=== PATIENT | female | born 1945 | race Caucasian/White ===

== ENCOUNTER 2024-04-18 22:23 | Observation (INO) | payer MEDICARE, SELFPAY ==
--- NOTE | 2024-04-18 | ECG_ITS ---
Test Reason : AFIB PER EMS Blood Pressure : / mmHG Vent. Rate : 115 BPM Atrial Rate : 000 BPM P-R Int : 000 ms QRS Dur : 104 ms QT Int : 332 ms P-R-T Axes : 000 011 249 degrees QTc Int : 459 ms Atrial fibrillation with rapid ventricular response Left ventricular hypertrophy with repolarization abnormality ( Facundo product ) Abnormal ECG No previous ECGs available Referred By: Generic ED Physician Electronically Signed By:ADDY WEBB MD
--- NOTE | ~2024-04-18 | XR_ITS ---
EXAMINATION: XR CHEST CLINICAL INFORMATION: Clinical question of congestive heart failure. COMPARISON: None available. TECHNIQUE: Frontal view of the chest was obtained. FINDINGS: No significant abnormality is noted involving the heart, lungs, mediastinum, bony thorax or soft tissues. XR/XR chest 1V IMPRESSION: Unremarkable examination. Electronically signed by: Pradeep Johnson MD 04/18/2024 11:54 PM [facility] [place]
[2024-04-18 22:29] VITALS: BP 147/89; PULSE 120; O2SAT 95
[2024-04-18 22:39] VITALS: BP 152/80; PULSE 135; RESP 20; TEMP 36.8; O2SAT 94
[2024-04-18 22:41] VITALS: BMI 33.4
--- NOTE | 2024-04-18 22:41 | ED.CHESTPAIN ---
HPI - Chest Pain General Chief Complaint: Arrhythmia/Palpitations Stated Complaint: Heart palpitations, 12 lead shows Afib, no hx afib Time Seen by Provider: 04/18/24 22:30 Source: patient Mode of arrival: ambulatory Limitations: no limitations History of Present Illness ED Provider: Dr. Balbina Gomez HPI narrative: Patient comes to the emergency room complaining of 1 hour onset of palpitations. According to the patient, he has not had any history of atrial fibrillation. Patient called EMS, they are EKG showed AFib, heart rate in the 140s to 150s. Patient states that she has a bit of chest pressure and palpitations. Related Data Allergies Allergy/AdvReac Type Severity Reaction Status Date / Time No Known Allergies Allergy Verified 04/18/24 22:43 Review of Systems Review of Systems: Constitutional : No Weight loss, No Fever, No Chills, No Night Sweats, No Fatigue, No Malaise ENT/Mouth : No Hearing loss, No Ear Pain, No Nasal Congestion, No Sinus Pain, No Hoarseness, No sore throat, No Rhinorrhea, No Swallowing Difficulty Eyes: No Eye Pain, No Swelling, No Redness, No Foreign Body, No Discharge, No Vision Changes Cardiovascular : No Chest Pain, complaining of mild chest pressure, palpitations, irregular rhythm Respiratory : No Cough, No Sputum, No Wheezing, No Smoke Exposure, No Dyspnea Gastrointestinal : No Nausea, No Vomiting, No Diarrhea, No Constipation, No abdominal Pain, No Hematochezia, No Melena Genitourinary : no irregular bleeding, No Dysuria, No Urinary Frequency, No Hematuria, No Urinary Incontinence, No Urgency, No Flank Pain, No Urinary Flow Changes, No Hesitancy Musculoskeletal : No joint pain, No Myalgias, No Joint Swelling Skin : No Skin Lesions, No rash Neuro : No Weakness, No Numbness, No Paresthesias, No Loss of Consciousness, No Dizziness, No Headache Psych : No Anxiety/Panic, No Depression, No SI/HI/AH/VH, No Social Issues, Heme/Lymph: No Bruising, No Bleeding,No Lymphadenopathy Endocrine : No Polyuria, No Polydipsia, No Temperature Intolerance PMF Past Medical History Medical History (Updated 04/19/24 @ 00:56 by Balbina Gomez MD) Hyperlipidemia Social History Social History Advance Directives: No Advance Directives Information Provided: No Do you have a plan to hurt others: No Plan Physical Exam Vital Signs: Vital Signs: Last Vital Signs Temp 98.2 F 04/19/24 00:44 Pulse 116 H 04/19/24 00:44 Resp 22 H 04/19/24 00:44 BP 105/72 04/19/24 00:44 Pulse Ox 94 04/19/24 00:44 O2 Del Method Room Air 04/19/24 00:44 BMI result Body Mass Index 33.4 Const: Other: Appearance: Alert. Oriented X3. No acute distress. Eyes: Pupils equal, round and reactive to light. ENT: Pharynx normal. Neck: Normal inspection. Neck supple. No lymph nodes noted. No crepitus CVS: Heart is irregularly irregular in the 130s to 150s Pulses normal. Normal S1 and S2 Respiratory: No respiratory distress. Breath sounds normal. No Wheezing. No rales Abdomen: Soft and nontender. No rigidity. No distention. Skin: Skin warm and dry. Normal skin color. Normal skin turgor. Extremities: No lower extremity edema. No Lacerations. No Rash Neuro: Oriented X 3. No motor deficit. No sensory deficit. Moving all extremities. No slurred speech. CN 2 through 12 grossly intact Psych: calm, cooperative, normal affect Medications Administered Discontinued Medications Generic Name Dose Route Start Last Admin Trade Name Vinceq PRN Reason Stop Dose Admin Diltiazem HCl 10 mg 04/18/24 22:41 04/18/24 23:04 Diltiazem Hcl 50 Mg/10 Ml Vial IVPUSH 04/18/24 22:42 10 mg STAT STA Administration Medical Decision Making Medical Decision Making [facility] Narrative: My interpretation of EKG: Atrial fibrillation with RVR, heart rate 115, nonspecific ST changes, QTC 459 All of patient's labs pending Patient's blood pressure 152/80, heart rate between 130 and 150 Patient receiving 1 dose of Cardizem IV 10 mg My interpretation of labs: No abnormality in hematology, chemistry shows a potassium of 3.1 which was repleted p.o., normal troponin, BNP 177 with no signs of CHF exacerbation. -after the Cardizem IV push, patient's heart rate was in the 100s. However, patient got out of bed start walking and went up to 150s again. Patient's chads 2 Vasc score of 3 -I discussed with the patient the risks versus benefits of starting a blood thinner, patient aware that if she falls down and has any kind of head injury, she needs to return to the emergency room for further evaluation possibly a CT scan. Also, patient aware that she may develop occult GI bleeding. Patient agreeable to start Eliquis Patient started on Cardizem drip -patient agrees with plan, Patient discussed with our hospitalist Dr. Castillo, patient being admitted Differential Diagnosis Differential Diagnoses: The differential diagnosis associated with the presentation includes Admission/Observation Consideration of admission/observation: Escalation of care including admission/observation considered Consult Healthcare Provider Management of the patient was discussed with: Hospitalist Lab Data MDM Lab Attestation statement: I reviewed the patient's lab results. 04/18/24 22:51 04/18/24 22:51 Labs: Lab Results 04/18/24 Range/Units 22:51 WBC 5.5 (4.8-10.8) X10*3/uL RBC 4.56 (4.20-5.50) X10*6/uL Hgb 15.2 (12.0-16.0) g/dl Hct 44.5 (37.0-47.0) % MCV 97.6 (80.0-98.0) fL MCH 33.3 H (27.0-33.0) pg MCHC 34.2 (31.0-35.0) g/dl RDW 13.4 (11.0-16.0) % Plt Count 159 L (160-400) X10*3/uL MPV 11.4 (9.4-12.3) fL Immature Gran % (Auto) 0.0 (0.0-0.4) % Neut % (Auto) 53.0 (45-73) % Lymph % (Auto) 36.2 (20-40) % Villalba % (Auto) 9.3 (2-11) % Eos % (Auto) 1.3 (0-4) % Baso % (Auto) 0.2 (0-2) % Lymph # (Auto) 2.0 (1.2-4.9) X10*3/uL Villalba # (Auto) 0.5 (0.1-1.2) X10*3/uL Eos # (Auto) 0.1 (0.0-0.4) X10*3/uL Baso # (Auto) 0.0 (0.0-0.2) X10*3/uL Abs Immat Gran (auto) 0.00 (0.00-0.03) X10*3/uL Absolute Neuts (auto) 2.9 (2.0-8.3) x10*3/uL Absolute Nucleated RBC 0.000 (0.0-0.012) X10*3/uL Nucleated RBC % (auto) 0.0 (0.0-0.2) /100WBC PT 10.4 L (10.9-12.4) SEC INR 0.9 (0.9-1.1) Sodium 143 (135-145) mmol/L Potassium 3.1 L (3.3-5.1) mmol/L Chloride 110 H (96-108) mmol/L Carbon Dioxide 19 L (22-29) mmol/L Anion Gap 17 (12-20) BUN 13 (9-16) mg/dL Creatinine 0.94 (0.5-1.4) mg/dL Estim Creat Clear Calc 54.1 Estimated GFR 57 Random Glucose 179 H (60-115) mg/dL Calcium 9.1 (8.4-10.2) mg/dL Magnesium 1.6 (1.6-2.6) mg/dL Total Bilirubin 0.2 (0.0-1.0) mg/dL Direct Bilirubin < 0.2 (0.0-0.5) mg/dL AST 23 (5-31) U/L ALT 21 (0-31) U/L Alkaline Phosphatase 73 (39-117) U/L Troponin I High Sens 10.7 (<3.5-17.0) ng/L B-Natriuretic Peptide 177 H (<100) pg/mL Total Protein 6.9 (6.5-8.0) g/dL Albumin 3.9 (3.5-5.0) g/dL TSH 3.98 (0.32-4.0) uIU/mL Independent Interpretation I performed an independent interpretation of an: Plain X-Ray Radiology Impression Discussion of test interpretation with radiology: I have reviewed the radiologist's reading. Radiologist Impression: No significant abnormality is noted involving the heart, lungs, mediastinum, bony thorax or soft tissues. XR/XR chest 1V IMPRESSION: Unremarkable examination. Independent Historian Clinical information obtained from an independent historian. History obtained from or confirmed by: Spouse Critical Care Time Critical Care Time Critical Care Time: Yes Total Critical Care Time: 60 Attestation: I have personally provided critical care time. Time includes review of lab data, radiology results, discussion with consultants, and monitoring for potential decompensation. Intervention performed as documented. Discharge Plan Discharge Clinical Impression: Atrial fibrillation with RVR, Acute hypokalemia Patient Disposition: Admitted As Inpatient Print Language: Telugu
[2024-04-18 22:56] LABS: Basophils Percent Auto 0.2 % (0-2); Eosinophils Absolute Auto 0.1 X10*3/uL (0.0-0.4); Eosinophils Percent Auto 1.3 % (0-4); Hematocrit 44.5 % (37.0-47.0); Hemoglobin 15.2 g/dl (12.0-16.0); Lymphocytes Percent Auto 36.2 % (20-40); MANUAL DIFF FLAG NO; Mean Corpuscular HGB Conc 34.2 g/dl (31.0-35.0); Mean Corpuscular Hemoglobin 33.3 pg (27.0-33.0); Mean Corpuscular Volume 97.6 fL (80.0-98.0); Mean Platelet Volume 11.4 fL (9.4-12.3); Monocytes Absolute Auto 0.5 X10*3/uL (0.1-1.2); Monocytes Percent Auto 9.3 % (2-11); Neutrophils Absolute Auto 2.9 x10*3/uL (2.0-8.3); Platelet Count 159 X10*3/uL (160-400); Red Blood Count 4.56 X10*6/uL (4.20-5.50); Red Cell Distribution Width 13.4 % (11.0-16.0); White Blood Count 5.5 X10*3/uL (4.8-10.8)
[2024-04-18 23:01] LABS: INTERNATIONAL NORM RATIO 0.9 (0.9-1.1); Prothrombin Time 10.4 SEC (10.9-12.4)
[2024-04-18 23:04] VITALS: BP 120/78; PULSE 132
[2024-04-18] MEDS: dilTIAZem HCL 50 MG/10 ML VIAL 10 MG IVPUSH (23:04)
[2024-04-18 23:16] LABS: B Type Natriuretic Peptide 177 pg/mL (<100)
[2024-04-18 23:17] LABS: Alanine Aminotransferase 21 U/L (0-31); Albumin Level 3.9 g/dL (3.5-5.0); Alkaline Phosphatase 73 U/L (39-117); Anion Gap 17 (12-20); Aspartate Amino Transferase 23 U/L (5-31); Bilirubin Direct < 0.2 mg/dL (0.0-0.5); Bilirubin Total 0.2 mg/dL (0.0-1.0); Blood Urea Nitrogen 13 mg/dL (9-16); Calcium 9.1 mg/dL (8.4-10.2); Carbon Dioxide 19 mmol/L (22-29); Chloride 110 mmol/L (96-108); Creatinine Clr Calc Pharmacy 54.1; Estimated Glomerular Filt Rate 57; Glucose Random 179 mg/dL (60-115); Magnesium 1.6 mg/dL (1.6-2.6); Potassium 3.1 mmol/L (3.3-5.1); Sodium 143 mmol/L (135-145); Total Protein 6.9 g/dL (6.5-8.0); Troponin-I High Sensitivity 10.7 ng/L (<3.5-17.0)
--- NOTE | 2024-04-18 23:28 | PC.NURSE ---
Pt received 10mg IV push cardizem, initial decrease in HR 90-100's.
[2024-04-18 23:31] LABS: TSH reflex Free T4 3.98 uIU/mL (0.32-4.0)
--- NOTE | 2024-04-19 | ECG_ITS ---
Test Reason : TACKY Blood Pressure : / mmHG Vent. Rate : 075 BPM Atrial Rate : 075 BPM P-R Int : 164 ms QRS Dur : 098 ms QT Int : 396 ms P-R-T Axes : 018 -09 -04 degrees QTc Int : 442 ms Normal sinus rhythm Minimal voltage criteria for LVH, may be normal variant ( Overton product ) Inferior infarct , age undetermined Abnormal ECG When compared with ECG of 18-APR-2024 22:32, Significant changes have occurred Referred By: Adis Singleton Electronically Signed By:ADDY WEBB MD
[2024-04-19 00:44] VITALS: BP 105/72; PULSE 116; RESP 22; TEMP 36.8; O2SAT 94
--- NOTE | 2024-04-19 01:40 | P.HPHOSP_ITS ---
History of Present Illness Date of Service: 04/19/24 Attending physician on admission: Adis Singleton Chief Complaint: Palpitations Edwige Nick is a 78 years old woman with past medical history significant for hyperlipidemia was brought to the ED by EMS due to palpitations that started last night around 21:30 while she was falling asleep last night. She reported some chest heaviness. There is no significant shortness on breath or cough. She did not report dizziness or loss of consciousness. Denies history of hypertension, heart failure, hyperthyroidism or arrhythmias. She drinks alcohol everyday for many years -3 glasses of bourbon. Last alcoholic drink was yesterday. She denied tobacco smoking or illicit drug use. She mentioned that she has been very stressed lately. In the ED, she was found to have tachycardia consistent with atrial fibrillation. Other vital signs are stable. Blood workup showed essentially normal CBC. There is mild hypokalemia of 3.1 but no other electrolyte imbalances. CO2 is 19 and normal anion gap. LFTs and renal function are normal. BNP is 177. TSH is 3.98. Troponin is negative. ECG CXR is negative. Initial ECG showed atrial fibrillation with rapid ventricular response, heart rate 115 bpm with LVH changes and no ischemia. While evaluating patient her heart rate converted to normal sinus rhythm. ECU was repeated and showed normal sinus rhythm with a heart rate of 75 beats per minutes without ischemic changes. ED tx: Diltiazem 10 mg IV, potassium 60 mEq p.o., Eliquis 5 mg. Review of Systems 2 Review of Systems: All 12 systems were reviewed and normal except as noted in HPI. [facility] Medical History (Updated 04/19/24 @ 00:56 by Balbina Gomez MD) Hyperlipidemia Social History Advance Directives: No Advance Directives Information Provided: No Do you have a plan to hurt others: No Plan Meds Allergies Allergy/AdvReac Type Severity Reaction Status Date / Time No Known Allergies Allergy Verified 04/18/24 22:43 Active Medications: Current Medications Acetaminophen (Acetaminophen 325 Mg Tablet) 975 mg PO Q6H PRN PRN Reason: Pain, Mild (Pain Scale 1-3), fever or headache Diltiazem HCl 125 mg/ Sodium (Chloride) 125 mls @ 0 mls/hr IVCONT .Q0M CATHI; Protocol Metoprolol Tartrate (Metoprolol Tartrate 12.5 Mg Halftab) 12.5 mg PO BID CATHI; Protocol Sodium Chloride (0.9 % Sodium Chloride Flush 3 Ml Syringe) 3 ml IVFLUSH QSHIFT CATHI Physical Exam 2 Vital Signs and Narrative: Vital Signs: Last Vital Signs Temp 98.2 F 04/19/24 00:44 Pulse 116 H 04/19/24 00:44 Resp 22 H 04/19/24 00:44 BP 105/72 04/19/24 00:44 Pulse Ox 94 04/19/24 00:44 O2 Del Method Room Air 04/19/24 00:44 BMI result Body Mass Index 33.4 Constitutional - Awake and Alert, No apparent distress. Very anxious and tearful. HEENT - PER, EOMI. Heart - RRR. No murmurs. Lungs - Normal lung expansion, Normal respiratory effort, No respiratory distress, CTA bilaterally Abdomen - NT / ND; +BS; No rebound or guarding Extremities - no calf tenderness bilaterally, no swelling Skin - Warm/Dry Neurological - Alert & oriented x3. No focal weakness grossly noted. Normal speech. Psychological - Anxious affect Results Labs 04/18/24 22:51 04/18/24 22:51 Labs: Laboratory Results - last 24 hr 04/18/24 22:51 MCV 97.6 MCH 33.3 H MCHC 34.2 RDW 13.4 Plt Count 159 L MPV 11.4 Immature Gran % (Auto) 0.0 Neut % (Auto) 53.0 Lymph % (Auto) 36.2 Dukes % (Auto) 9.3 Eos % (Auto) 1.3 Baso % (Auto) 0.2 Lymph # (Auto) 2.0 Dukes # (Auto) 0.5 Eos # (Auto) 0.1 Baso # (Auto) 0.0 Abs Immat Gran (auto) 0.00 Absolute Neuts (auto) 2.9 Absolute Nucleated RBC 0.000 Nucleated RBC % (auto) 0.0 PT 10.4 L INR 0.9 Anion Gap 17 Estim Creat Clear Calc 54.1 Estimated GFR 57 Random Glucose 179 H Calcium 9.1 Magnesium 1.6 Total Bilirubin 0.2 Direct Bilirubin < 0.2 AST 23 ALT 21 Alkaline Phosphatase 73 Troponin I High Sens 10.7 B-Natriuretic Peptide 177 H Total Protein 6.9 Albumin 3.9 TSH 3.98 Imaging Radiologist's Impressions: Impressions Chest X-Ray 04/18/24 22:39 IMPRESSION: Unremarkable examination. Electronically signed by: Pradeep Johnson MD 04/18/2024 11:54 PM [facility] [place] Assessment and Plan (1) Acute hypokalemia: Status: Acute (2) Atrial fibrillation with RVR: Status: Acute (3) Hyperlipidemia: Status: Acute Plan Edwige Nick is a 78 y/o woman admitted with: * Episode of atrial fibrillation, converted to normal sinus rhythm after receiving treatment with Cardizem 10 mg IV x1. Observation. Start metoprolol 12.5 mg PO bid. Patient to consider avoid alcohol consumption. Check echocardiogram. Eliquis versus aspirin if echo shows CHF. Cardiology consult. * Mild hypokalemia. Potassium 60 mEq p.o. given in ED. Continue to monitor K level. Replete as needed. * Hyperlipidemia. Continue statin. * Mood disorder. Continue citalopram. DVT prophylaxis: Early ambulation Code status: Full Quality Stroke Does the patient have a stroke diagnosis?: No VTE Prior VTE?: No VTE Risk Level:: Medical - moderate - high VTE Device Contraindication: Treatment Not Indicated VTE Drug Contraindication: N/A - Med Ordered
[2024-04-19] MEDS: Metoprolol Tartrate 12.5 MG HALFTAB PO ×2 (02:02→09:23)
[2024-04-19] MEDS: Apixaban 5 MG TABLET PO (02:03)
[2024-04-19] MEDS: Potassium Chloride Packet 20 MEQ PACKET 60 MEQ PO (02:03)
[2024-04-19 04:00] VITALS: PULSE 64
[2024-04-19 05:51] LABS: MANUAL DIFF FLAG NO
[2024-04-19 06:11] LABS: Anion Gap 13 (12-20); Blood Urea Nitrogen 13 mg/dL (9-16); Calcium 9.1 mg/dL (8.4-10.2); Carbon Dioxide 25 mmol/L (22-29); Chloride 109 mmol/L (96-108); Creatinine Clr Calc Pharmacy 59.1; Estimated Glomerular Filt Rate > 60; Glucose Random 116 mg/dL (60-115); Potassium 4.6 mmol/L (3.3-5.1); Sodium 142 mmol/L (135-145)
[2024-04-19 06:13] LABS: Troponin-I High Sensitivity 15.1 ng/L (<3.5-17.0)
--- NOTE | 2024-04-19 06:22 | PC.NURSE ---
Late documentation: Pt BIB EMS after reports of palpitations and chest heaviness. Pt found to be in afib RVR 110-130's. Pt given 10mg IV push cardizem at 2304 with minimal effect bringing HR down to 90's-110's afib. Pt ambulated in hallway with tech and HR between 130's-150's. Pt denied any chest pain but still reporting having chest palpitations I can feel my heart thumping . Pt to be admitted. At 0100pt HR dropped down to 35, Dr.Gomez Singleton was already in the room assessing pt for admission at the time. Pt reported feeling okay at that time. HR immediately improved and pt converted to SR in 70's. EKG obtained and vitals stable and pt resting in bed comfortably. Call menchaca within reach.
[2024-04-19 06:27] LABS: Basophils Percent Auto 0.3 % (0-2); Eosinophils Absolute Auto 0.1 X10*3/uL (0.0-0.4); Eosinophils Percent Auto 0.9 % (0-4); Hematocrit 42.1 % (37.0-47.0); Hemoglobin 14.2 g/dl (12.0-16.0); Imm Gran Abs Auto 0.03 X10*3/uL (0.00-0.03); Imm Gran Pct Auto 0.4 % (0.0-0.4); Lymphocytes Absolute Auto 1.8 X10*3/uL (1.2-4.9); Lymphocytes Percent Auto 26.2 % (20-40); Mean Corpuscular HGB Conc 33.7 g/dl (31.0-35.0); Mean Corpuscular Hemoglobin 33.1 pg (27.0-33.0); Mean Corpuscular Volume 98.1 fL (80.0-98.0); Monocytes Absolute Auto 0.6 X10*3/uL (0.1-1.2); Monocytes Percent Auto 8.9 % (2-11); Neutrophils Absolute Auto 4.3 x10*3/uL (2.0-8.3); Neutrophils Percent Auto 63.3 % (45-73); Platelet Count 166 X10*3/uL (160-400); Red Blood Count 4.29 X10*6/uL (4.20-5.50); Red Cell Distribution Width 13.5 % (11.0-16.0); White Blood Count 6.8 X10*3/uL (4.8-10.8)
[2024-04-19 08:25] VITALS: BP 113/63; PULSE 58; RESP 18; TEMP 36.7; O2SAT 97
[2024-04-19 09:05] VITALS: BMI 33.6
[2024-04-19] MEDS: 0.9 % Sodium Chloride Flush 3 ML SYRINGE IVFLUSH (09:23)
--- NOTE | 2024-04-19 09:44 | PHA.MEDREC ---
Addendum entered by Rick Romero RPh 04/19/24 11:22: MED REC CHECKED BY [facility] Original Note: Pharmacy Consult ? Medication Reconciliation Pharmacy has completed the medication reconciliation. Spoke to pt to confirm meds. Pt reports taking gabapentin 300 mg PM and trospium 20 mg in the AM only.
--- NOTE | 2024-04-19 11:48 | PM.DS ---
DS: Providers Provider Date of Service: 04/19/24 Date of admission: 04/19/24 01:20 Date of discharge: 04/19/24 Primary care physician: Unknown Physician Consults: 04/19/24 01:38 Consult to Cardiology Routine Consulting Provider: [facility] Reason for consultation: AFib, new onset Has provider been notified: No Attending physician on discharge: Neil Cortez Discharging clinician: Nara Jo DS: Diagnosis Discharge Diagnosis (1) Acute hypokalemia: Status: Acute (2) Atrial fibrillation with RVR: Status: Inactive (3) Hyperlipidemia: Status: Acute DS: Summary Hospital Course Hospital Course: From H&P on the day of admission Edwieg Nick is a 78 years old woman with past medical history significant for hyperlipidemia was brought to the ED by EMS due to palpitations that started last night around 21:30 while she was falling asleep last night. She reported some chest heaviness. There is no significant shortness on breath or cough. She did not report dizziness or loss of consciousness. Denies history of hypertension, heart failure, hyperthyroidism or arrhythmias. She drinks alcohol everyday for many years -3 glasses of bourbon. Last alcoholic drink was yesterday. She denied tobacco smoking or illicit drug use. She mentioned that she has been very stressed lately. In the ED, she was found to have tachycardia consistent with atrial fibrillation. Other vital signs are stable. Blood workup showed essentially normal CBC. There is mild hypokalemia of 3.1 but no other electrolyte imbalances. CO2 is 19 and normal anion gap. LFTs and renal function are normal. BNP is 177. TSH is 3.98. Troponin is negative. ECG CXR is negative. Initial ECG showed atrial fibrillation with rapid ventricular response, heart rate 115 bpm with LVH changes and no ischemia. While evaluating patient her heart rate converted to normal sinus rhythm. ECU was repeated and showed normal sinus rhythm with a heart rate of 75 beats per minutes without ischemic changes. ED tx: Diltiazem 10 mg IV, potassium 60 mEq p.o., Eliquis 5 mg. Paroxysmal atrial fibrillation Patient presented for evaluation of palpitations, on arrival was noted to be in atrial fibrillation, was given a dose of IV Cardizem and converted to normal sinus rhythm. Started on low-dose metoprolol and Eliquis. Seen in consultation by Cardiology who agreed with the same. Outpatient echocardiogram and follow-up with PCP. Patient educated not to combine alcohol with blood thinner as well as other anticoagulation precautions discussed - she understands. Time Attestation Discharge Coordination Time (in mins): 35 Quality: Safe Use of Opioids Does Pt have an Active Cancer Diagnosis on the Problem List?: No Quality: Stroke Does the patient have a stroke diagnosis?: No Physical Exam Vital Signs: Vital Signs: Last Vital Signs Temp 98.1 F 04/19/24 08:25 Pulse 58 04/19/24 08:25 Resp 18 04/19/24 08:25 BP 113/63 04/19/24 08:25 Pulse Ox 97 04/19/24 08:25 O2 Del Method Room Air 04/19/24 08:25 BMI result Body Mass Index 33.6 Const: General: cooperative, comfortable, no acute distress, alert and awake Nutritional Appearance: overweight Orientation/consciousness: patient oriented x3 Resp: Effort & Inspection: normal respiratory effort, able to speak in complete sentences, no respiratory distress and no use of accessory muscles Cardio: Rate: regular rate GI: Inspection: No distended Palpation (GI): Soft to palpation and nontender Neuro: General: patient oriented x3, moves all extremities and CN's II-XI intact bilaterally Extrem: General: Yes no pedal edema DS: Data Data Completed and Pending Labs on day of discharge: Laboratory Results - last 24 hr 04/18/24 04/19/24 22:51 05:36 WBC 5.5 6.8 RBC 4.56 4.29 Hgb 15.2 14.2 Hct 44.5 42.1 MCV 97.6 98.1 H MCH 33.3 H 33.1 H MCHC 34.2 33.7 RDW 13.4 13.5 Plt Count 159 L 166 MPV 11.4 12.0 Immature Gran % (Auto) 0.0 0.4 Neut % (Auto) 53.0 63.3 Lymph % (Auto) 36.2 26.2 Crenshaw % (Auto) 9.3 8.9 Eos % (Auto) 1.3 0.9 Baso % (Auto) 0.2 0.3 Lymph # (Auto) 2.0 1.8 Crenshaw # (Auto) 0.5 0.6 Eos # (Auto) 0.1 0.1 Baso # (Auto) 0.0 0.0 Abs Immat Gran (auto) 0.00 0.03 Absolute Neuts (auto) 2.9 4.3 Absolute Nucleated RBC 0.000 0.000 Nucleated RBC % (auto) 0.0 0.0 PT 10.4 L INR 0.9 Sodium 143 142 Potassium 3.1 L 4.6 D Chloride 110 H 109 H Carbon Dioxide 19 L 25 Anion Gap 17 13 BUN 13 13 Creatinine 0.94 0.86 Estim Creat Clear Calc 54.1 59.1 Estimated GFR 57 > 60 Random Glucose 179 H 116 H Calcium 9.1 9.1 Magnesium 1.6 Total Bilirubin 0.2 Direct Bilirubin < 0.2 AST 23 ALT 21 Alkaline Phosphatase 73 Troponin I High Sens 10.7 15.1 B-Natriuretic Peptide 177 H Total Protein 6.9 Albumin 3.9 TSH 3.98 Discharge Plan Discharge Anticipated Discharge Date/Time: 04/19/24 11:53 Patient Disposition: Home, Self-Care Discharge Diagnosis: atrial fibrillation, new onset Referrals: Cole Blood MD [Physician] - 2 Weeks Physician,Marie J [Primary Care Provider] - 1 Week Discharge Medications: New Eliquis 5 mg tablet 5 mg PO BID 90 Days Qty: 180 0RF metoprolol tartrate [Lopressor] 50 mg tablet 25 mg PO Q12H 90 Days Qty: 90 0RF Continued latanoprost 0.005 % drops 1 drp ophthalmic (eye) BEDTIME escitalopram oxalate 10 mg tablet 20 mg PO DAILY rosuvastatin 20 mg tablet 20 mg PO DAILY trospium 20 mg tablet 20 mg PO DAILY cetirizine 10 mg Tablet 10 mg PO BEDTIME gabapentin 300 mg capsule 300 mg PO BEDTIME cholecalciferol (vitamin D3) [Vitamin D3] 125 mcg (5,000 unit) Tablet 125 mcg PO DAILY cyanocobalamin (vitamin B-12) 1,000 mcg Lozenge 1,000 mcg SUBLINGUAL DAILY@1200 Discharge Orders: Discharge Order (Routine); Ordered 04/19/24 Ordered By: Nara Jo Activity on Discharge: As tolerated Stand Alone Forms: Patient Portal Discharge page Print Language: Korean Care Plan Goals: see below Health Concerns: new onset atrial fibrillation Plan of Treatment: start taking metoprolol to control heart rate take Eliquis to reduce the risk of stroke outpatient follow up with cardiology call to schedule follow up with PCP Do not drink alcohol, or take NSAIDs while taking blood thinner Assessment: see discharge summary
--- NOTE | 2024-04-19 11:49 | P.CONCA_ITS ---
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 Patient says that she has had fluttering in her chest for a long time since she was young person and was labeled in 1980s as having mitral valve prolapse although no interventions were performed. Since then she was advised to change from caffeine to decaffeinated beverages which she was. She continues to have intermittent symptoms of fluttering. However she says she was in usual state of health yesterday night had gone to bed and then woke up with sudden-onset rapid heart rate with palpitation felt really poorly associated with pressure on the chest. Patient subsequently told her and they called 911 and came to the emergency room. In the emergency room she was noted to be in atrial fibrillation rapid ventricular response with diffuse ST T wave changes suggestive of ischemia. This also possibility of LVH although she has no history of hypertension. With rate control she quickly converted to sinus rhythm and her ST T wave changes improved. Possibly suggestive of rate related repolarization abnormality and/or ischemia. Patient says she feels well. She has never had atrial fibrillation in the past. She was also noted to be significantly hypokalemic which has now improved with therapy. She is not on any diuretic therapy. Cardiology consult was sought for further management plan. Review of Systems 2 Constitutional: Constitutional: Reports no additional constitutional complaints Eyes: Eyes: Reports no additional eye complaints Cardiovascular: Cardiovascular: Reports chest pain at rest, Denies leg edema, Denies lightheadedness, Denies Loss of Consciousness, Reports palpitations and Reports dyspnea Respiratory: Respiratory: Reports no additional respiratory complaints and Reports dyspnea Gastrointestinal: Gastrointestinal: Reports no additional gastrointestinal complaints Genitourinary: Genitourinary: Reports no additional female genitourinary complaints Musculoskeletal: Musculoskeletal: Reports no additional musculoskeletal complaints Neurologic: Reports system reviewed and no additional complaints, except as documented Psychiatric: Psychiatric: Reports no additional psychiatric complaints Endocrine: Endocrine: Reports no additional endocrine complaints and Reports palpitations Hematologic/Lymphatic: Hematologic/Lymphatic: Reports no additional hematologic/lymphatic complaints Allergic/Immunologic: Allergic/Immunologic: Reports no additional allergic/immunologic complaints [facility] Past Medical History Medical History (Updated 04/19/24 @ 11:53 by Cole Blood MD) Atrial fibrillation with RVR 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, carcinoma Hyperlipidemia Social History Social History Household Members: Spouse Housing: Apartment Housing Other:: independent living Do you presently have visiting nurse or other home services: No Alcohol intake: current Patient Tobacco Use Status: Former Tobacco user Tobacco use type: Cigarette Meds Allergies Allergy/AdvReac Type Severity Reaction Status Date / Time No Known Allergies Allergy Verified 04/18/24 22:43 Active Medications: Current Medications Acetaminophen (Acetaminophen 325 Mg Tablet) 975 mg PO Q6H PRN PRN Reason: Pain, Mild (Pain Scale 1-3), fever or headache Atorvastatin Calcium (Atorvastatin Calcium 80 Mg Tablet) 80 mg PO DAILY CATHI Escitalopram Oxalate (Escitalopram Oxalate 20 Mg Tablet) 20 mg PO DAILY [facility] Gabapentin (Gabapentin 300 Mg Capsule) 300 mg PO BEDTIME [facility] Diltiazem HCl 125 mg/ Sodium (Chloride) 125 mls @ 0 mls/hr IVCONT .Q0M [facility]; Protocol Latanoprost (Latanoprost 0.005 % Ophth Eva 2.5 Ml Drops) 1 drop EYE-BOTH BEDTIME [facility] Metoprolol Tartrate (Metoprolol Tartrate 12.5 Mg Halftab) 12.5 mg PO BID [facility]; Protocol Last Admin: 04/19/24 09:23 Dose: 12.5 mg Non-Formulary Medication (Trospium) 20 mg PO DAILY [facility] Sodium Chloride (0.9 % Sodium Chloride Flush 3 Ml Syringe) 3 ml IVFLUSH QSHIFT [facility] Last Admin: 04/19/24 09:23 Dose: 3 ml Home Medications ?Medication ?Instructions ?Recorded ?Confirmed ?Last Taken ?Type cetirizine 10 mg tablet 10 mg PO BEDTIME 04/19/24 04/19/24 Unknown History cholecalciferol (vitamin D3) 125 125 mcg PO DAILY 04/19/24 04/19/24 04/18/24 09:00 History mcg (5,000 unit) tablet (Vitamin D3) cyanocobalamin (vitamin B-12) 1,000 mcg sublingual DAILY@1200 04/19/24 04/19/24 Unknown History 1,000 mcg sublingual lozenge escitalopram oxalate 10 mg tablet 20 mg PO DAILY 12/04/19/24 04/18/24 09:00 History gabapentin 300 mg capsule 300 mg PO BEDTIME 04/19/24 04/19/24 Unknown History latanoprost 0.005 % eye drops 1 drp ophthalmic (eye) BEDTIME 04/19/24 04/19/24 Unknown History rosuvastatin 20 mg tablet 20 mg PO DAILY 04/19/24 04/19/24 04/18/24 09:00 History trospium 20 mg tablet 20 mg PO DAILY 04/19/24 04/19/24 04/18/24 09:00 History Physical Exam 2 Vital Signs: Vital Signs: Last Vital Signs Temp 98.1 F 04/19/24 08:25 Pulse 58 04/19/24 08:25 Resp 18 04/19/24 08:25 BP 113/63 04/19/24 08:25 Pulse Ox 97 04/19/24 08:25 O2 Del Method Room Air 04/19/24 08:25 BMI result Body Mass Index 33.6 Const: General: cooperative, comfortable, no acute distress, alert and awake Nutritional Appearance: overweight Orientation/consciousness: patient oriented x3 Limitations: no limitations HEENT: Head: Yes normocephalic and Yes atraumatic Neck: Neck: Yes trachea midline, Yes supple and Yes no JVD Resp: Effort & Inspection: normal respiratory effort Auscultation: clear to auscultation bilaterally Cardio: Jugular venous distension: no JVD Palpation: normal PMI Rate: r egular rate Rhythm: regular rhythm Heart sounds: S1 normal heart sound present, S2 normal heart sound present, no click, no gallops, no murmurs and no rubs GI: Auscultation: normal bowel sounds Skin: General skin exam: no rashes or lesions noted Neuro: General: patient oriented x3 and no focal motor deficits Extrem: General: Yes no clubbing, cyanosis or edema Psych: Appearance: grossly normal Objective Labs and Meds 04/19/24 05:36 04/19/24 05:36 Lab results: Laboratory Results - last 24 hr 04/18/24 04/19/24 22:51 05:36 WBC 5.5 6.8 RBC 4.56 4.29 Hgb 15.2 14.2 Hct 44.5 42.1 MCV 97.6 98.1 H MCH 33.3 H 33.1 H MCHC 34.2 33.7 RDW 13.4 13.5 Plt Count 159 L 166 MPV 11.4 12.0 Immature Gran % (Auto) 0.0 0.4 Neut % (Auto) 53.0 63.3 Lymph % (Auto) 36.2 26.2 Miner % (Auto) 9.3 8.9 Eos % (Auto) 1.3 0.9 Baso % (Auto) 0.2 0.3 Lymph # (Auto) 2.0 1.8 Miner # (Auto) 0.5 0.6 Eos # (Auto) 0.1 0.1 Baso # (Auto) 0.0 0.0 Abs Immat Gran (auto) 0.00 0.03 Absolute Neuts (auto) 2.9 4.3 Absolute Nucleated RBC 0.000 0.000 Nucleated RBC % (auto) 0.0 0.0 PT 10.4 L INR 0.9 Sodium 143 142 Potassium 3.1 L 4.6 D Chloride 110 H 109 H Carbon Dioxide 19 L 25 Anion Gap 17 13 BUN 13 13 Creatinine 0.94 0.86 Estim Creat Clear Calc 54.1 59.1 Estimated GFR 57 > 60 Random Glucose 179 H 116 H Calcium 9.1 9.1 Magnesium 1.6 Total Bilirubin 0.2 Direct Bilirubin < 0.2 AST 23 ALT 21 Alkaline Phosphatase 73 Troponin I High Sens 10.7 15.1 B-Natriuretic Peptide 177 H Total Protein 6.9 Albumin 3.9 TSH 3.98 Imaging Radiologist's impression: Impressions Chest X-Ray 04/18/24 22:39 IMPRESSION: Unremarkable examination. Electronically signed by: Pradeep Johnson MD 04/18/2024 11:54 PM [facility] [place] Assessment and Plan (1) Paroxysmal atrial fibrillation: Status: Acute Highly symptomatic new onset atrial fibrillation, rapidly converted to sinus rhythm with rate control. Most likely trigger being hypokalemia of unclear etiology. She says she has a normal diet. I have advised her to focus on high potassium intake in his diet. If potassium remains low may need further workup and nephrology consultation. She has prior history of fluttering in chest most likely PACs for many many years. Clinically does not have any evidence of mitral valve prolapse. Will need further workup but can be done as outpatient. Most concerning is EKG changes associated chest pressure underlying coronary artery disease needs to be ruled out. Will suggest exercise myocardial perfusion imaging in near future. Will also suggest an echocardiogram to evaluate for LV systolic and diastolic function biatrial chamber size. Also suggest a Holter monitor as outpatient. I would start her on low-dose metoprolol 25 mg daily to reduce excitability of her heart as well as high potassium intake in his diet with fruits especially citrus foods as well as add Eliquis 5 mg b.i.d. to her regimen given her CHADSVASC score of 3. In the long run weight reduction will also help reducing her risk of recurrent atrial fibrillation. Patient can be safely discharged home. All management was discussed with her in details. She understands and agrees. Will follow-up as outpatient. Thank you for allowing me to partake in his care Procedures Date of Service Date of Service: 04/19/24
[2024-04-19 11:58] VITALS: BP 153/68; PULSE 51; RESP 18; TEMP 36.5; O2SAT 99
--- NOTE | 2024-04-19 12:11 | MHC.CM.PN ---
PETRA 04/19. Pt self-care, lives at home with her who will transport her home today at discharge. Pt uses a cane. PCP: Dr. Paulette Hubbard
== END 2024-04-19 15:05 | disposition home or self-care (01) ==
LOC: HO.ED 04-19 00:56 → HO.EDOVER 04-19 01:26 → HO.IMC 04-19 07:59
PROVIDERS: Admitting Provider Internal Medicine; Emergency Provider Emergency Medicine; PCP Student in an Organized Health Care Education/Training Program; Visit Provider Physician Assistant Medical
DX: E87.6 Hypokalemia (principal); I48.0 Paroxysmal atrial fibrillation; E78.5 Hyperlipidemia, unspecified; R00.0 Tachycardia, unspecified; R00.2 Palpitations; F39 Unspecified mood [affective] disorder
CPT/HCPCS: 36415; 71045; 80048; 80076; 83735; 83880; 84443; 84484; 85025; 85610; 93005; 96374; 99222; 99285

== ENCOUNTER → 2024-04-18 22:32 | Outpatient (BNV) | payer MEDICARE, SELFPAY | PROVIDERS: Admitting Provider Internal Medicine; Emergency Provider Emergency Medicine; Visit Provider Internal Medicine Cardiovascular Disease | DX: I48.91 Unspecified atrial fibrillation (principal) | CPT/HCPCS: 93010 ==

== ENCOUNTER → 2024-04-19 01:20 | Outpatient (BNV) | payer MEDICARE, SELFPAY | PROVIDERS: Admitting Provider Internal Medicine; Emergency Provider Emergency Medicine; Visit Provider Internal Medicine Cardiovascular Disease | DX: I48.0 Paroxysmal atrial fibrillation (principal) | CPT/HCPCS: 93010; 99222 ==

== ENCOUNTER → 2024-04-19 01:20 | Outpatient (BNV) | payer MEDICARE, SELFPAY | PROVIDERS: Admitting Provider Internal Medicine; Emergency Provider Emergency Medicine; Visit Provider Internal Medicine | DX: E87.6 Hypokalemia (principal); I48.91 Unspecified atrial fibrillation; E78.5 Hyperlipidemia, unspecified | CPT/HCPCS: 99236 ==

== ENCOUNTER → 2024-05-13 09:48 | Outpatient (REF) | payer MEDICARE, SELFPAY ==
--- NOTE | 2024-05-13 09:53 | CA_ITS ---
Transthoracic Echocardiogram Patient (Last, First, Middle): Edwige Nick, Gender: Female Date of : 1945 Age: 78 Procedure Date: 05/13/2024 Procedure Type: Transthoracic Echocardiogram Location: OP Height: 165.1 cm Weight: 88.91 kg BSA: 1.96 m2 Heart Rate: bpm BP: 150 / 90 mmHg Licensing And Registration Director: TO Referring MD: Cole Blood MD Symptoms: I48.0 - Paroxysmal atrial fibrillation Study Quality: Adequate ECG Rhythm: Sinus Conclusions: - The left ventricular systolic function is normal. The calculated ejection fraction is 58% by biplane method. - No obvious valvular pathology seen on this study. Findings Left Ventricle Normal left ventricular cavity size. There is mildly increased left ventricular wall thickness. The left ventricular systolic function is normal. The calculated ejection fraction is 58% by biplane method. There is no evidence of regional wall motion abnormalities. Evidence suggests grade I (mild) diastolic dysfunction. There is moderate septal asymmetric hypertrophy. Right Ventricle Normal right ventricular cavity size and systolic function. Atria The left atrium is mildly dilated. The right atrium is normal in size. Aortic Valve There is a normal trileaflet aortic valve. There is no aortic valve stenosis. There is no aortic valve regurgitation. Mitral Valve The mitral valve appears normal. There is no mitral valve regurgitation. There is no mitral valve stenosis. Pulmonic Valve The pulmonic valve is likely normal. Tricuspid Valve There is no tricuspid valve regurgitation. Tricuspid regurgitation envelope is inadequate for calculation of right ventricular systolic pressure. Great Vessels The asc aorta and aortic arch are normal in size. Small plaque is seen in the sinuses of Valsalva. Venous The inferior vena cava is normal in size and collapses greater than 50% with inspiration. Pericardium/Pleural There is no evidence of pericardial effusion. Prior Study Comparison No prior study available for comparison. Recommendations, Care & Conclusions No obvious valvular pathology seen on this study. Measurements 2D Linear Measurements IVSd: 1.50 0.6-0.9/0.6-1.0 cm LVIDd: 4.61 3.9-5.3/4.2-5.9 cm LVIDd Index: 2.35 2.4-3.2/2.2-3.1 cm/m2 LVIDs: 2.78 2.0-3.6 cm LVPWd: 1.20 0.7-1.1 cm LA Diam: 3.70 2.7-3.8/3.0-4.0 cm LAIDs Index: 1.89 1.5-2.3 cm/m2 LV Mass: 304.35 67-162/88-224 g LV Mass Index: 155.28 43-95/49-115 g/m2 LVOT Diam: 2.20 3.0+(-)1.3 cm 2D Systolic Function EF 4C: 57.00 >55% EF 2C: 58.50 >55% EF BiP: 58.20 >55% Mitral Valve MV Pk E: 0.48 MV PK A: 0.74 MV Decel Time: 225.00 E/A: 0.60 E'Lateral: 5.33 E'Medial: 3.15 E/E' Med: 15.20 E/E' Lat: 9.00 PHT: 66.00 MVA PHT: 3.33 Decel [place]: 2.13 Aortic Valve AoV Pk Marshall: 1.32 AoV Mn Marshall: 0.99 AoV VTI: 0.30 AoV Pk Grad: 7.00 Aov Mn Grad: 4.00 SUSAN Cont.VTI: 2.73 LVOT LVOT Pk Marshall: 1.01 LVOT Mn Marshall: 0.60 LVOT VTI: 0.21 LVOT Pk Grad: 4.00 LVOT Mn Grad: 2.00 LVOT Diam: 2.20 LVOT Area: 3.80 Diastolic Function MV Pk E: 0.48 MV Pk A: 0.74 E/A: 0.60 E'Medial: 3.15 E/E' Med: 15.20 E' Laterial: 5.33 E/E' Lat: 9.00 Right Ventricle TAPSE (mm): 19.20 TVS' Marshall: 12.00 Great Vessels Aorta Sinus of Valsalva: 3.07 2.0-3.5 cm Ao Asc: 3.40 2.1-3.4 cm Ao Arch: 2.70 Updated in Other Vendor System with Status of Final Kemal Up MD electronically signed on 05/14/2024 11:28:32 AM with status of Final
== END ==
LOC: HO.CARD 09:48
PROVIDERS: Visit Provider Internal Medicine Cardiovascular Disease
DX: I48.0 Paroxysmal atrial fibrillation (principal)
CPT/HCPCS: 93242; 93306

== ENCOUNTER → 2024-05-13 09:53 | Outpatient (BNV) | payer MEDICARE, SELFPAY | PROVIDERS: Visit Provider Internal Medicine | DX: I42.2 Other hypertrophic cardiomyopathy (principal) | CPT/HCPCS: 93306 ==

== ENCOUNTER → 2024-07-23 08:25 | Outpatient (REF) | payer MEDICARE, SELFPAY ==
--- NOTE | 2024-07-23 08:29 | CA_ITS ---
Acquisition Time: 2024-07-23 08:41:21 Total Exercise Time: 00:11:34 Test Indications: AFIB Medications: METOPROLOL Protocol: KALIA Max HR: 104 BPM 73% of Pred: 141 BPM Max BP: 128/78 mmHG Max Work Load: 1.7 METS Exercise Stress Test with exercise 5 secs of Kalia Protocol, requested to stop due to speed and incline on treadmill, test switched to Lexiscan. Pharmacological stress test with Lexiscan, while pt walked on treadmill at 1mph, with reports of dizziness and SOB, with isolated PVCs, with normotensive response to injection. Nondiagnostic EKG for ischemia. In recovery, pt treated with IVP Aminophylline 75 mg to reverse Lexiscan, after which pt feeling back to baseline. Nuclear images pending. Test reviewed with Dr. Mir. Referred By: Cole Blood Electronically Signed By: Oscar Reilly
== END ==
LOC: HO.CARD 08:25
PROVIDERS: Visit Provider Internal Medicine Cardiovascular Disease
DX: I48.0 Paroxysmal atrial fibrillation (principal)
CPT/HCPCS: 93017; J0280; J2785

== ENCOUNTER → 2024-07-23 08:29 | Outpatient (BNV) | payer MEDICARE, SELFPAY | DX: R06.02 Shortness of breath (principal); I49.3 Ventricular premature depolarization | CPT/HCPCS: 78452; 93016; 93018 ==

== ENCOUNTER 2024-08-10 11:32 | Outpatient (AMB) | payer MEDICARE, SELFPAY ==
[2024-08-10 11:34] VITALS: BP 132/80; PULSE 78; BMI 32.6
--- NOTE | 2024-08-10 11:34 | MHC.OFFVIS ---
Vital Signs 08/10/24 11:34 Height 5 ft 5 in Weight 196 lb 3.382 oz BMI 32.6 BP 132/80 Blood Pressure Location Lt brachial Position Sitting Pulse 78 Intake Visit Reasons: f/u c dc after echo/holter and stress Intake Note: Follow-up [facility] [place] dc after echo, holter, and stress feeling good has not started the metoprolol or the eliquis Finisher Brush Required: No Allergies No Known Allergies Allergy (Verified 04/18/24 22:43) Medication List - Last Reconciled 08/10/24 by Cole Blood MD cetirizine 10 mg PO BEDTIME cholecalciferol (vitamin D3) (Vitamin D3) 125 mcg PO DAILY cyanocobalamin (vitamin B-12) 1,000 mcg sublingual DAILY@1200 escitalopram oxalate 20 mg PO DAILY gabapentin 300 mg PO BEDTIME latanoprost 0.005% 1 drp ophthalmic (eye) BEDTIME rosuvastatin 20 mg PO DAILY trospium 20 mg PO DAILY HPI Comments Details: Edwige comes for follow-up after workup after presented to the emergency room for paroxysmal atrial fibrillation. She has had repeat symptoms with short palpitations noted on Holter monitor which correlated with short runs of SVT which could represent short runs of AFib. She has not had any prolonged palpitations. Echocardiogram shows normal LV ejection fraction with mildly enlarged left atrium. Stress test were within normal limits. She was not started taking her metoprolol Eliquis therapy. She was not had any neurologic complications. No other symptoms of exertional chest pain or shortness of breath. No orthopnea, PND, leg edema. 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, carcinoma Hyperlipidemia Social History Household Members: Spouse Housing: Apartment Housing Other:: independent living Do you presently have visiting nurse or other home services: No Alcohol intake: current Patient Tobacco Use Status: Former Tobacco user Tobacco use type: Cigarette service: No Review of Systems Const Denies chills, Denies fatigue, Denies fever(s), Denies frequent falls, Denies weakness, Denies weight gain and Denies weight loss ENT Denies dizziness Card Denies chest pain, Denies leg edema, Denies lightheadedness, Denies palpitations, Denies dyspnea, Denies dyspnea on exertion, Denies orthopnea and Denies other (loss of consciousness) Resp Denies cough, Denies dyspnea and Denies dyspnea on exertion GI Denies hematochezia and Denies change in stool character Musc Denies abnormal gait, Denies muscle weakness, Denies numbness, Denies radiating pain into limb and Denies tingling Neuro Denies abnormal gait, Denies dizziness, Denies frequent falls, Denies numbness, Denies tingling and Denies weakness Endo Denies fatigue and Denies palpitations Physical Exam Vital Signs: Last Vital Signs Pulse 78 08/10/24 11:34 BP 132/80 08/10/24 11:34 BMI result Body Mass Index 32.6 Const General: cooperative, comfortable, no acute distress, alert and awake Nutritional Appearance: overweight Orientation/consciousness: patient oriented x3 Limitations: ambulation with cane Neck Neck: Yes trachea midline, Yes supple and Yes no JVD Resp Effort & Inspection: normal respiratory effort Auscultation: clear to auscultation bilaterally Cardio Jugular venous distension: no JVD Palpation: normal PMI Rate: regular rate Rhythm: regular rhythm Heart sounds: S1 normal heart sound present, S2 normal heart sound present, no click, no gallops, no murmurs and no rubs GI Auscultation: normal bowel sounds Skin General skin exam: no rashes or lesions noted Neuro General: patient oriented x3 and no focal motor deficits Extrem General: Yes no clubbing, cyanosis or edema Assessment & Plan Assessment & Plan (1) Paroxysmal atrial fibrillation: Code(s): I48.0 - Paroxysmal atrial fibrillation Category: Medical Plan: Highly symptomatic paroxysmal atrial fibrillation without any prolonged episodes of recurrence. She does have short bursts of SVTs which could represent SVT or short burden of atrial fibrillation. Discussed management of atrial fibrillation. Avoidance of triggers such as stimulants. Stress mitigation strategies were discussed. Recommend metoprolol therapy as she continues to have some minor symptoms with short runs. Would also strongly advised her to be on oral anticoagulant therapy with Eliquis at 5 mg b.i.d.. Semi annual renal function test should be pursued. She was hesitant by understands and is willing to restart. Discussed with the about risks and benefits of oral anticoagulation therapy including stroke risk. Will follow up in the clinic in 6 months time, sooner p.r.n.. Thank you for allowing me to partake in her care Medications: Discontinued apixaban (Eliquis) Discontinued Reason: Patient no longer taking 5 mg PO BID 90 days 180 tabs 0RF metoprolol tartrate (Lopressor) Discontinued Reason: Patient no longer taking 25 mg (1/2 x 50 mg) PO Q12H 90 days 90 tabs 0RF Coding Level of Care Code Est Pt Level 4 (81598) Complex EM visit Add On G2211 Diagnoses Paroxysmal atrial fibrillation I48.0
== END 2024-08-10 11:59 | disposition home or self-care (01) ==
LOC: HO.HCS 11:33
PROVIDERS: Visit Provider Internal Medicine Cardiovascular Disease
DX: I48.0 Paroxysmal atrial fibrillation (principal)
CPT/HCPCS: 99214; G2211

== ENCOUNTER → 2024-08-10 11:32 | Outpatient (BNVA) | payer MEDICARE, SELFPAY | PROVIDERS: Visit Provider Internal Medicine Cardiovascular Disease | DX: I48.0 Paroxysmal atrial fibrillation (principal) | CPT/HCPCS: 99212 ==

== ENCOUNTER 2025-02-18 11:17 | Outpatient (AMB) | payer BC, SELFPAY ==
--- NOTE | 2025-02-18 11:28 | MHC.OFFVIS ---
Vital Signs 02/18/25 11:29 Height 5 ft 5 in Weight 198 lb 6.656 oz BMI 33.0 BP 116/66 Blood Pressure Location Lt brachial Position Sitting Pulse 72 Intake Visit Reasons: 6 month f/up Allergies No Known Allergies Allergy (Verified 04/18/24 22:43) Medication List - Last Reconciled 02/18/25 by Cole Blood MD apixaban 5 mg PO BID cetirizine 10 mg PO BEDTIME cholecalciferol (vitamin D3) (Vitamin D3) 125 mcg PO DAILY cyanocobalamin (vitamin B-12) 1,000 mcg sublingual DAILY@1200 escitalopram oxalate 20 mg PO DAILY gabapentin 300 mg PO BEDTIME PRN latanoprost 0.005% 1 drp ophthalmic (eye) BEDTIME metoprolol tartrate 25 mg PO BID trospium 20 mg PO DAILY HPI Comments Details: Edwige comes for follow-up. She said when she forgets to take her metoprolol she does get symptoms of palpitation brief. When she takes metoprolol the symptoms go away. She does not forget to take her Eliquis. She denies any exertional chest pain or shortness of breath. Denies any heart failure symptoms. No lightheadedness, syncope. 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, carcinoma Hyperlipidemia Social History Household Members: Spouse Housing: Apartment Housing Other:: independent living Do you presently have visiting nurse or other home services: No Alcohol intake: current Patient Tobacco Use Status: Former Tobacco user Tobacco use type: Cigarette service: No Review of Systems Const Denies chills, Denies fatigue, Denies fever(s), Denies frequent falls, Denies weakness, Denies weight gain and Denies weight loss ENT Denies dizziness Card Denies chest pain, Denies leg edema, Denies lightheadedness, Denies palpitations, Denies dyspnea, Denies dyspnea on exertion, Denies orthopnea and Denies other (loss of consciousness) Resp Denies cough, Denies dyspnea and Denies dyspnea on exertion GI Denies hematochezia and Denies change in stool character Musc Denies abnormal gait, Denies muscle weakness, Denies numbness, Denies radiating pain into limb and Denies tingling Neuro Denies abnormal gait, Denies dizziness, Denies frequent falls, Denies numbness, Denies tingling and Denies weakness Endo Denies fatigue and Denies palpitations Physical Exam Vital Signs: Last Vital Signs Pulse 72 02/18/25 11:29 BP 116/66 02/18/25 11:29 BMI result Body Mass Index 33.0 Const General: cooperative, comfortable, no acute distress, alert and awake Nutritional Appearance: overweight Orientation/consciousness: patient oriented x3 Limitations: ambulation with cane Neck Neck: Yes trachea midline, Yes supple and Yes no JVD Resp Effort & Inspection: normal respiratory effort Auscultation: clear to auscultation bilaterally Cardio Jugular venous distension: no JVD Palpation: normal PMI Rate: regular rate Rhythm: regular rhythm Heart sounds: S1 normal heart sound present, S2 normal heart sound present, no click, no gallops, no murmurs and no rubs GI Auscultation: normal bowel sounds Skin General skin exam: no rashes or lesions noted Neuro General: patient oriented x3 and no focal motor deficits Extrem General: Yes no clubbing, cyanosis or edema Assessment & Plan Assessment & Plan (1) Paroxysmal atrial fibrillation: Code(s): I48.0 - Paroxysmal atrial fibrillation Category: Medical Plan: Highly symptomatic paroxysmal atrial fibrillation which has remained suppressed on current metoprolol therapy overall. She only gets her symptoms when she forgets occasionally to take her medications. Importance of compliance with medication was discussed. Avoidance of stimulants was discussed. Continue full oral anticoagulation, currently on Eliquis 5 mg b.i.d.. Semi annual renal function test and annual CBC should be checked. Stress mitigation strategies were discussed. Advised to monitor for symptoms and she continues to have symptoms despite metoprolol therapy may consider antiarrhythmic drug therapy and/or ablation. This was discussed with her. Will follow up in the clinic in 1 year's time, sooner PRN. Thank you for allowing me to partake in her care Coding Level of Care Code Est Pt Level 4 (31721) Complex EM visit Add On G2211 Diagnoses Paroxysmal atrial fibrillation I48.0
[2025-02-18 11:29] VITALS: BP 116/66; PULSE 72; BMI 33.0
--- OUTSIDE RECORDS SUMMARY | 2025-02-18 14:30 | XMS_ITS | Encounter Summary ---
Author Organization [facility] Address [address] [place] [address] Phone Care Team Providers Care Medicaid Service Coordinator Name Role Phone Leslee Terrell MD Primary Care Provider + Encounter Details Date Type Department Care Team ([facility] st Contact Info) Description 03/11/2024 Procedure Pass [facility] Endoscopy Admitting Dept Virtual Department [address] [place] [id number] Social History Tobacco Use Types Packs/Day Years Used Date Smoking Tobacco: Former Cigarettes Smokeless Tobacco: Never Alcohol Use Standard Drinks/Week Comments Yes 0 (1 standard drink = 0.6 oz pur e alcohol) 3 per night Education Answer Date Recorded Are you interested in more education? Not on helga e 08/31/2022 Are you concerned about learning? Not on file 08/31/2022 No 08/31/2022 No 08/31/2022 Digital Access Answer Date Recorded No 09/29/2022 No 09/29/2022 Reliable internet access at home? Not on file 09/29/2022 Device with a working camera? Not on file Intimate Partner Violence Answer Date R ecorded Are you denied basic needs s uch as food, clothing, or medical care? No 03/11/2024 In the past 12 months have y ou been in a relationship with a person who hurts, threatens, or tries to control you? No 03/11/2024 Are you denied basic needs s uch as food, clothing, or medical care? No 03/11/2024 In the past 12 months have y ou been in a relationship with a person who hurts, threatens, or tries to control you? No 03/11/2024 Comments No Sex and Gender Information Value Date Recorded Sex Assigned at Not on file Legal Sex Female 3:04 PM EDT Gender Identity Not on file Sexual Orientation Not on file documented as of this encounter Plan of Treatment Upcoming Encounters Date Type Department Care Team ([facility] st Contact Info) Description 03/17/2025 10:30 AM EST Office Visit [facility] [address] [place] [phone] Unknown, Unknown, Katherine Aldrich, LIFE TRAINER [address] [place] [address] documented as of this encounter Visit Diagnoses Not on filedocumented in this encounter Care Teams Medicaid Service Coordinator Relationship Specialty Start Date End Date Leslee Terrell MD [address] [place] [phone] PCP - General Family Medicine 03/11/24 documented as of this encounter Additional Source Comments The information contained in this document represents components of the legal health record. It is not the complete legal health record.[facility]
--- OUTSIDE RECORDS SUMMARY | 2025-02-18 14:31 | XMS_ITS | Clinical Summary ---
Author Organization [facility] Address [address] [place] [address] Phone Care Team Providers Care Car Ferry Captain Name Role Phone Leslee Terrell MD Primary Care Provider + Allergies Active Allergy Reactions Criticality Noted Date Comments Bee Pollen 07/02/2014 Congestion Lactose 07/24/2018 Meperidine Medium 02/17/2020 causes mental status changes , hallucinations Tetracyclines 07/24/2018 Medications losartan-hydroCH LOROthiazide (HYZAAR) 50-12.5 mg per tablet Active simvastatin (ZOCOR) 40 MG tablet Active ALPRAZolam (XANAX) 0.5 MG tablet alprazolam 0.5 mg tablet Active cholecalciferol (VITAMIN D3) 5,000 unit tablet Take 5,000 Units by mouth 2 (two) times a day. 0 Active colestipol (COLESTID) 1 gram tablet colestipol 1 gram tablet take 1 tablets by mouth daily Active escitalopram oxalate (LEXAPRO) 10 MG tablet daily. Active mv-mn-folic ac-vit K-herb 289 800-100 mcg Tab Take 1 tablet by mouth daily. 0 Active lactase (LACTAID) 3,000 unit Chew Take 3,000 Units by mouth daily as needed (WHEN EATING LACTOSE). 0 Active apixaban (ELIQUIS) 2.5 mg Take 2.5 mg by mouth 2 (two) times a day. X 24 DAYS FROM D/C 02/12 0 Active calcium carbonate (OS-DAVID) 1,250 mg (500 mg elemental) tablet Take 1 tablet by mouth 3 (three) times a day. WITH MEALS 0 Active metoclopramide HCl (REGLAN) 10 MG tablet Take 10 mg by mouth every 6 (six) hours as needed for nausea. 0 Active omeprazole (PRILOSEC) 20 MG capsule Take 20 mg by mouth daily. REPORTS SHE HAS RESTARTED THIS MEDICATION 0 Active gabapentin (NEURONTIN) 300 MG capsule Take 300 mg by mouth nightly at bedtime. 0 Active polyethylene glycol (MIRALAX) 17 gram packet Take 17 g by mouth daily. HOLD IF LOOSE STOOL 0 Active Lactobacillus acidophilus Cap Take 1 capsule by mouth daily. 0 Active ibuprofen (ADVIL,MOTRIN) 200 MG tablet Take 600 mg by mouth every 6 (six) hours as needed for pain (specific location in comments). TAKE WITH FOOD 0 Active latanoprost (XALATAN) 0.005 % ophthalmic solution Place 1 drop into each eye nightly at bedtime. 0 Active acetaminophen (TYLENOL) 500 MG tablet Take 500 mg by mouth every 6 (six) hours as needed for pain (specific location in comments). MAY TAKE 500-1000MG Q 6HPRN 0 Active rosuvastatin (CRESTOR) 20 MG tablet Take 1 tablet by mouth every morning. 4 Active trospium (SANCTURA) 20 mg tablet Take 1 tablet by mouth 2 (two) times a day. 4 Active cyanocobalamin, vitamin B-12, 1000 MCG tablet Take 1,000 mcg by mouth daily. Active cetirizine (ZYRTEC) 10 MG tablet Take 10 mg by mouth as needed for allergies. Active Active Problems No known active problems Social History Tobacco Use Types Packs/Day Years Used Date Smoking Tobacco: Former Cigarettes Smokeless Tobacco: Never Tobacco Cessation:Counseling Given: Not Answered Alcohol Use Standard Drinks/Week Comments Yes 0 [...] on file Sexual Orientation Not on file Last Filed Vital Signs Vital Sign Reading Time Taken Comments Blood Pressure 166/70 03/11/2024 10:30 AM EST Pulse 67 03/11/2024 10:30 AM EST Temperature 35.9 C (96.6 F) 03/11/2024 10:23 AM EST Respiratory Rate 21 03/11/2024 10:30 AM EST Oxygen Saturation 97% 03/11/2024 10:30 AM EST Inhaled Oxygen Concentration - - Weight 89.4 kg (197 lb) 03/09/2024 9:04 AM EST Height 165.1 cm (5' 5 ) 06/12/2019 11:47 AM EST Body Mass Index 32.78 06/12/2019 11:47 AM EST Plan of Treatment Upcoming Encounters Date Type Department Care Team (Late st Contact Info) Description 03/17/2025 10:30 AM EST Office Visit [facility] [address] [place] [phone] Unknown, Unknown, Katherine Aldrich, INSURANCE BUSINESS ANALYST [address] [place] [address] Health Maintenance Due Date Last Done Comments LIPID PANEL 1944 DEPRESSION SCREENING 1956 SMOKING Hx and SMOKELESS TOBACCO SCREENING 1957 OSTEOPOROSIS SCREENING INITIAL (ONE-TIME) 2009 RSV VACCINE (1 - 1-dose 75+ series) 12/05/2019 CREATININE LEVEL 06/12/2020 06/12/2019 POTASSIUM LEVEL 06/12/2020 06/12/2019 INFLUENZA VACCINE (#1) 2024 , 02/08/2023, 03/09/2022, Additional history exists COVID-19 VACCINE (2024- season) 2025 01/30/2024, 08/13/2023, 02/08/2023, Additional history exists Adult Td,Tdap Booster 01/24/2026 01/25/2016 PNEUMOCOCCAL VACCINES (50+ years) Completed 10/08/2023, 01/25/2016, 10/18/2009 ZOSTER VACCINES Completed 10/08/2023, 09/2021, 10/18/2009 HEPATITIS A VACCINES Aged Out No long er eligible based on patient's age to complete this topic HIB VACCINES Aged Out No longer eligi ble based on patient's age to complete this topic MENINGOCOCCAL VACCINES (ACWY) Aged Out No longer eligible based on patient's age to complete this topic MENINGOCOCCAL VACCINES (B) Aged Out N o longer eligible based on patient's age to complete this topic Medical Devices Implanted Type Area Architectural Associate Device Identifier Shelf Expiration Date Model / Serial / Lot Prosthetic Joint Prosthetic Joint Left: Hip Procedures Procedure Name Priority Date/Time Associated Diagnosis Comments BASIC METABOLIC PANEL STAT 06/12/2019 10:43 AM EST from Last 3 Months or Most Recently Relevant to Health Maintenance Results * (ABNORMAL) Basic metabolic panel (06/12/2019 10:43 AM EST) SODIUM 143 133 - 146 mmol/L [facility] CHLORIDE 103 96 - 108 mmol/L [facility] POTASSIUM 4.9 3.3 - 5.1 mmol/L [facility] CO2 26 21 - 35 mmol/L [facility] BUN 20(H) 6 - 19 mg/dL [facility] CREATININE 0.80 0.5 - 1.5 mg/dL [facility] GLUCOSE 147(H) 70 - 99 mg/dL [facility] CALCIUM 9.6 8.4 - 10.3 mg/dL [facility] EGFR 73 >59 mL/min/1.7 3m2 [facility] Comment:If patient is black, multiply result by 1.159. Estimated glomerular filtration rate calculated using the CKD-EPI equation. ANION GAP 19 10 - 20 mmol/L [facility] Blood 06/12/2019 10:4 3 AM EST 06/12/2019 10:52 AM EST us Corina MARTINEZ LAB BLOOD ORDERABLES nal Result [facility] [address], [place] [phone] from Last 3 Months or Most Recently Relevant to Health Maintenance Insurance MEDICARE PART A & B [facility] MEDICARE PART A & B [facility] MEDICARE PART A & B [facility] MEDICARE PART A & [place] [address] [address] MEDICARE PART A & B [facility] MEDICARE PART A & B [employer] MEDICARE PART A & B [employer] [facility] MEDICARE PART A & B [facility] MEDICARE PART A & B [facility] Care Teams Car Ferry Captain Relationship Specialty Start Date End Date Leslee Terrell MD [address] [place] [phone] [email or web address] PCP - General Family Medicine 03/11/24 Additional Source Comments The information contained in this document represents components of the legal health record. It is not the complete legal health record.[facility]
== END 2025-02-18 11:49 | disposition home or self-care (01) ==
LOC: HO.HCS 11:18
PROVIDERS: PCP Student in an Organized Health Care Education/Training Program; Visit Provider Internal Medicine Cardiovascular Disease
DX: I48.0 Paroxysmal atrial fibrillation (principal)
CPT/HCPCS: 99214